=== PATIENT | female | born 1990 | race African-American/Black ===

== ENCOUNTER 2020-04-29 10:29 | Emergency (ER) | payer SELFPAY ==
[2020-04-29 11:19] VITALS: BP 149/107
[2020-04-29] MEDS ORDERED: PREDNISONE 20 MG TABLET PO ONE (11:38)
[2020-04-29] MEDS ORDERED: GUAIFENESIN/D-METHORPHAN (200-20 MG) SYRUP 10 ML PO ONE (11:38)
[2020-04-29] MEDS ORDERED: BENZONATATE 100 MG CAPSULE PO ONE (11:38)
--- NOTE | 2020-04-29 12:42 | ER Document Report ---
Entered by BHAVIN LOZA SCRIBE 04/29/20 1202 Acting as scribe for:PAULINO BARGER MD ED General - General Chief Complaint: Cough Stated Complaint: COUGH,CONGESTION,SORE THROAT Time Seen by Provider: 04/29/20 11:26 Mode of Arrival: Ambulatory Information source: Patient Notes: This 30 year old female patient presents to the emergency department today with complaints of a sore throat for the last two days which is gone now. She still has nasal congestion, chills, and sweats. Patient states she has taken nyquil and sudafed with minimal relief. Patient has had a dry cough but she denies any fevers or known COVID-19 exposure. Past Medical History - General Information source: Patient - Social History Smoking Status: Current Every Day Smoker Cigarette use (# per day): Yes Chew tobacco use (# tins/day): No Smoking Education Provided: No Frequency of alcohol use: None Drug Abuse: None Lives with: Family Family History: Reviewed & Not Pertinent Patient has homicidal ideation: No - Medical History Medical History: Negative Surgical Hx: Negative Review of Systems - Review of Systems Constitutional: See HPI, Chills. denies: Fever EENT: See HPI, Nose congestion, Throat pain Cardiovascular: No symptoms reported Respiratory: See HPI, Cough Gastrointestinal: No symptoms reported Genitourinary: No symptoms reported Female Genitourinary: No symptoms reported Musculoskeletal: No symptoms reported Skin: No symptoms reported Hematologic/Lymphatic: No symptoms reported Neurological/Psychological: No symptoms reported -: Yes All other systems reviewed and negative Physical Exam - Vital signs Vitals: Temp Pulse Resp BP Pulse Ox 98.5 F 69 18 149/107 H 100 04/29/20 11:16 04/29/20 11:16 04/29/20 11:16 04/29/20 11:16 04/29/20 11:16 - Notes Notes: Physical Exam: General: Alert, appears well. HEENT: Normocephalic. Atraumatic. PERRL. Extraocular movements intact. Mild posterior oropharynx erythema without exudate, airway is patent. TMs are clear and non-bulging bilaterally. Nasal sinus congestion. Neck: Supple. Non-tender. Respiratory: No respiratory distress. Clear and equal breath sounds bilaterally. Cardiovascular: Regular rate and rhythm. Abdominal: Obese. Non-tender. No distension. Normal Bowel Sounds. Back: No gross abnormalities. Extremities: Moves all four extremities. Upper extremities: Normal inspection. Normal ROM. Lower extremities: Normal inspection. No edema. Normal ROM. Neurological: Normal cognition. AAOx4. Normal speech. Psychological: Normal affect. Normal Mood. Skin: Warm. Dry. Normal color. Course - Re-evaluation Re-evalutation: 04/29/20 13:07 Influenza test is negative. Patient refused to allow the CBC to be drawn. 04/29/20 13:08 The patient was evaluated during the global COVID-19 pandemic and that diagnosis was suspected/considered upon their initial presentation. Their evaluation, treatment and testing was consistent with current guidelines for patients who present with complaints or symptoms that may be related to COVID-19. 04/29/20 13:28 The patient is refusing to allow COVID test to be done. She states "I'm not going to let anybody put something up my nose". 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 - Vital Signs Vital signs: Temp Pulse Resp BP Pulse Ox 98.5 F 69 18 149/107 H 100 04/29/20 11:16 04/29/20 11:16 04/29/20 11:16 04/29/20 11:16 04/29/20 11:16 - Diagnostic Test Radiology reviewed: Image reviewed, Reports reviewed - Chest x-ray does not show acute radiographic changes. Discharge - Discharge Clinical Impression: Viral upper respiratory tract infection with cough Condition: Stable Disposition: HOME, SELF-CARE Additional Instructions: Upper Respiratory Illness You have a viral infection of the respiratory passages -- a "cold." This common infection causes nasal congestion, drainage, and often sore throat and cough. It is caused by a virus and is highly contagious. The disease usually lasts a week or more, though the worst symptoms are usually over in 3 or 4 days. There is no "cure" for the viral infection -- it must run its course. If there is a complication, such as bacterial infection in the nose, sinuses, middle ear, or bronchial tubes, antibiotics may be required, but antibiotics won't affect the virus. If you smoke, you should STOP!! Drink plenty of fluids. A humidifier may help. An expectorant medication or decongestant may make you more comfortable. Use acetaminophen or ibuprofen for fever or aches. See the doctor if fever persists over two or three days, if there is any significant worsening of your symptoms, or if you simply fail to improve as expected. Drink plenty of fluids and get plenty of rest. Continue taking [id number] cough and cold medications to help with your sinus congestion symptoms. Follow-up with your primary care provider if not improving. RETURN TO THE EMERGENCY ROOM IF ANY NEW OR WORSENING SYMPTOMS. Forms: Return to Work I personally performed the services described in the documentation, reviewed and edited the documentation which was dictated to the scribe in my presence, and it accurately records my words and actions.
[2020-04-29 12:51] LABS: A TYPE INFLUENZA AG NEGATIVE (NEGATIVE); B INFLUENZA AG NEGATIVE (NEGATIVE)
--- NOTE | 2020-04-29 12:55 | RADIOLOGY REPORT (SQ) ---
EXAM DESCRIPTION: CHEST SINGLE VIEW IMAGES COMPLETED DATE/TIME: 04/29/2020 12:35 pm REASON FOR STUDY: Cough, congestion COMPARISON: None. EXAM PARAMETERS: NUMBER OF VIEWS: One view. TECHNIQUE: Single frontal radiographic view of the chest acquired. RADIATION DOSE: NA LIMITATIONS: None. FINDINGS: LUNGS AND PLEURA: No opacities, masses or pneumothorax. No pleural effusion. MEDIASTINUM AND HILAR STRUCTURES: No masses. Contour normal. HEART AND VASCULAR STRUCTURES: Heart normal in size. Normal vasculature. BONES: No acute findings. HARDWARE: None in the chest. OTHER: No other significant finding. IMPRESSION: NO ACUTE RADIOGRAPHIC FINDING IN THE CHEST. TECHNICAL DOCUMENTATION: JOB ID: [id number] 2010 [employer]- All Rights Reserved Reading location - IP/workstation name: [email or web address]
== END 2020-04-29 13:40 | disposition home or self-care (01) ==
LOC: ER 10:29
DX: J06.9 Acute upper respiratory infection, unspecified (principal); R09.81 Nasal congestion; F17.210 Nicotine dependence, cigarettes, uncomplicated
CPT/HCPCS: 99284; 87804; 71045; J7512; J3490